=== PATIENT | male | born 1970 | race Caucasian/White ===

== ENCOUNTER 2017-02-01 08:13 | Inpatient (IN) | payer BC, OTHER ==
[2017-01-03 09:37] VITALS: BMI 35.0
[2017-01-03 10:42] LABS: URINE APPEARANCE CLEAR (CLEAR); URINE BILIRUBIN NEG (NEG); URINE COLOR YELLOW; URINE NITRITE NEG (NEG); URINE PH 6.5 (4.5-7.5); URINE SPECIFIC GRAVITY 1.027 (1.000-1.030); UROBILINOGEN NEG (NEG); ZZUR CULT IF INDIC CLEAN CATCH NO
[2017-01-03 10:44] LABS: MANUAL MICROSCOPIC REQUIRED? NO; REVIEW REQ? NO
[2017-01-03 10:49] LABS: BASO ABS # 0.05 K/uL (0-0.2); COMPLETE YES; EOS % 1.9 %; HEMATOCRIT 41.8 % (42-52); IG% 0.2 %; LYMPH % 24.6 %; LYMPH ABS # 1.29 K/uL (1.2-3.4); MEAN CELL VOLUME 88.6 fL (80-100); MEAN CORPUSCULAR HEMOGLOBIN 30.1 pg (25-34); MEAN PLATELET VOLUME 10.2 fL (7.4-10.4); MONO % 11.4 %; NEUT % 60.9 %; PLATELET COUNT 264 K/uL (130-400); PROTHROMBIN TIME (PATIENT) 10.5 SECONDS (9.0-12.0); RED BLOOD COUNT 4.72 M/uL (4.7-6.1); WHITE BLOOD COUNT 5.25 K/uL (4.8-10.8)
[2017-01-03 11:05] LABS: ESTIMATED AVERAGE GLUCOSE 103 mg/dl; HA1C FLAG Normal (Normal)
[2017-01-03 11:13] LABS: BUN/CREATININE RATIO 14.8 (10-20); CALCIUM 8.8 mg/dl (8.5-10.1); CREATININE 0.9 mg/dl (0.60-1.40); POTASSIUM 3.9 mmol/L (3.5-5.1)
--- NOTE | 2017-01-31 11:11 | HISTORY & PHYSICAL EXAMINATION ---
DATE OF ADMISSION: 02/01/2017 CHIEF COMPLAINT: Left hip pain. HISTORY OF PRESENT ILLNESS: The patient is a 46-year-old male with a known osteoarthritis about his left hip. He had a previous right total hip arthroplasty approximately a year and a half ago, which has done well. 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 Due to ongoing pain and disability and limitation with work activities, the patient now desires to proceed with left total hip arthroplasty. PAST MEDICAL HISTORY: Denies. PAST SURGICAL HISTORY: Right hip as above. MEDICATIONS: None. ALLERGIES: No known drug allergies. SOCIAL HISTORY AND REVIEW OF SYSTEMS: Noncontributory. PHYSICAL EXAMINATION: GENERAL: Well-nourished and well-developed male who appears his stated age. HEENT: Normocephalic and atraumatic. Extraocular movements intact. Oropharynx is pink and moist. NECK: Supple without adenopathy. LUNGS: Clear to auscultation bilaterally. HEART: Regular rate and rhythm. ABDOMEN: Soft, nontender, and nondistended. EXTREMITIES: The upper extremities are within normal limits. Left hip demonstrates limited range of motion. There is limitation of active and passive internal/external rotation with pain at end range. X-RAYS: X-rays were reviewed. He has moderate to severe osteoarthritis with near complete loss of the joint space. There is a large osteophyte off the inferior femoral head and acetabulum. ASSESSMENT: Left hip degenerative joint disease. PLAN: Risks versus benefits were discussed. Consent was obtained. We will proceed with left total hip arthroplasty upon preoperative workup and medical clearance. The patient's primary care physician is Vidya Ortiz from [facility] in [place].
[2017-02-01] VITALS (9 sets, daily range): BP systolic 98–138; BP diastolic 52–82; PULSE 53–85; TEMP 36.3–36.8; O2SAT 96–100; Ht 172.7 cm; Wt 105.8 kg
[~2017-02-01] VITALS: Ht 172.7 cm; Wt 105.8 kg
[~2017-02-01 08:13] MED LIST: ACETAMINOPHEN 500 MG TAB PO SCH; BUPIVACAINE 0.5 % 5 MG/1 ML PF 10ML VIAL ONE; CEFAZOLIN 2000 MG/60 ML D5W 60 ML IV SCH; CLB/200 PO; CeleBREX 200 MG CAP PO SCH; DEXAMETHASONE 4 MG TAB PO SCH; FAMOTIDINE 20 MG TAB PO SCH; GABAPENTIN 300 MG CAP PO SCH; HYDR-5688 PO; LACTATED RINGER'S 1000ML IV SCH; LACTATED RINGER'S 500 ML IV SCH; METOCLOPRAMIDE HCL 10 MG TAB PO SCH; OXYCODONE HCL 10 MG TABCR (OXYCONTIN) PO SCH; ROPIVACAINE 5MG/ML 30 ML 150 MG, BUPIVACAINE/EPINEPHR 0.5% MPF 30 ML, KETOROLAC TROMETH... INFIL SCH
--- NOTE | 2017-02-01 08:15 | History & Physical Bridge Note ---
H&P Re-Evaluation Bridge Note: I have examined the patient, reviewed the History & Physical and in the interval since the performance of the History & Physical I have noted the following changes of clinical significance: No changes noted
[2017-02-01] MEDS ORDERED: MIDAZOLAM HCL 1 MG/ML 2ML VIAL ONE ×2 (09:29)
[2017-02-01] MEDS ORDERED: NURSING VERBAL MED ORDER ONE (09:30)
[2017-02-01] MEDS ORDERED: FENTANYL CITRATE INJ 50 MCG/1 ML 2 ML VIAL ONE (09:30)
[2017-02-01] MEDS ORDERED: FENTANYL CITRATE INJ 50 MCG/1 ML 2 ML VIAL IV PRN (09:45)
[2017-02-01] MEDS ORDERED: EpHEDrine SULFATE INJ 50 MG/ML AMP IV PRN (09:45)
[2017-02-01] MEDS ORDERED: ONDANSETRON INJ 2 MG/ML 2 ML VIAL IV PRN ×2 (09:45→12:45)
[2017-02-01] MEDS ORDERED: ATROPINE SULFATE 0.1 MG/ML 5ML SYR IV PRN (09:45)
[2017-02-01] MEDS ORDERED: BACITRACIN 50000 UNIT VIAL ONE (10:43)
[2017-02-01] MEDS: TRANEXAMIC ACID INJ 1,000 MG in SODIUM CHLORIDE 0.9% 100ML 100 ML IV SCH ×2 (10:43→14:36)
[2017-02-01] MEDS ORDERED: ORTHO JOINT ANESTHETIC ONE (10:43)
[2017-02-01] MEDS ORDERED: POVIDONE-IODINE OP SOLN 30 ML BTL ONE (10:43)
--- NOTE | 2017-02-01 12:08 | [facility] Post Operative Brief Note ---
Immediate Operative Summary Operative Date Feb 01, 2017. Pre-Operative Diagnosis Left hip degenerative joint disease Post-Operative Diagnosis Left hip degenerative joint disease Procedure(s) Performed Left total hip arthroplasty Surgeon Dr. Jones Computer Systems Architect Surgeon(s) Cuate Clemente PA-C Estimated Blood Loss 100cc Findings severe OA Specimens A. Left femoral head Disposition Recovery Room / PACU
--- NOTE | 2017-02-01 12:21 | OPERATIVE REPORT ---
DATE OF OPERATION: 02/01/2017 PREOPERATIVE DIAGNOSIS: Osteoarthritis, left hip. POSTOPERATIVE DIAGNOSIS: Osteoarthritis, left hip. PROCEDURE: Left connective total hip arthroplasty. SURGEON: Dr. Jones. COMMERCIAL LEASING AGENT: Cuate Clemente PA-C. ANESTHESIA: Spinal. COMPLICATIONS: None. IMPLANTS USED: Acetabular liner 56, acetabular shell 56, femoral stem Accolade 4, and femoral head -5 x 36 mm ceramic. DESCRIPTION OF PROCEDURE: Following induction of adequate spinal anesthesia, the patient was placed in right lateral decubitus position and left Lizbeth-Langenbeck incision was made. Subcutaneous tissue was sharply dissected. Electrocautery used for hemostasis. The fascia was incised throughout the length of the wound and a brewer scissor placed beneath the short external rotators. The pyriformis was tagged with #1 Vicryl. The short external rotators were divided from the posterior aspect of the femur using electrocautery. These were swept posteriorly. A T-capsulotomy incision was made and the hip was dislocated using a combination of flexion, adduction, and internal rotation. Exposure of the femoral neck with old-style Hohmann and a blunt Hohmann was carried out and a femoral rasp was utilized as a guide for making the appropriate level femoral neck cut. This bone fragment was removed and reserved on the back table. Next, attention was turned to the acetabulum where bone hook was used to retract the femur while the offset retractors were placed anterior and posteriorly. A double-angled Hohmann was placed in superior and anterior position exposing the acetabulum nicely. Acetabular labrum as well as posterior capsule elements were removed using a long knife and a long pickup. Fovea centralis was cleared of all soft tissue. Sequential reamings were carried up to a 56 and decision was made to proceed with impaction of a 56 trabecular metal cup. This was impacted and held using a single 35 mm bone screw. The acetabular liner was placed with 15 of elevated posterior wall in the superior and posterior position. Next, attention was turned to the femoral portion of the case where a Bovie and pickup was used to further clear short external rotators from their insertion on the femur. Box osteotome was used to gain access to the femoral canal and the T-handled rasp and a rattail rasp were used to further open and lateral the canal. Sequentially raspings were carried up to a 4, which gave good fit and fill of the proximal femur. A trial reduction was carried out and ____ offset femoral neck component was chosen as the size to be used. A -5 x 36 mm femoral head was impacted into position, +0 head was utilized. The trial reduction was stable in all degrees of rotation with no [id number] impingement. The hip was dislocated. The trial components were removed and the final femoral stem, neck, and femoral head combination were assembled on the back table and impacted into position. Hip was relocated. Range of motion checked once again successful and the wound was irrigated. The pyriformis repaired to the greater trochanter using #1 Vicryl [id number] suture. A Hemovac drain was placed and the fascia was closed using #1 Vicryl, subcutaneous tissue was closed using 0 Dexon, and skin was closed with lito. Sterile dressing of Adaptic, 4 x 4's, ABDs, and foam tape was applied. The patient tolerated the procedure well. Due to the complex nature of the procedure, the entire surgery was performed with the operational assistance of Cuate Clemente PA-C. The student assistant, under direct supervision, was involved in the actual performance of all aspects of the surgical procedure including hemostasis, tissue retraction and incision, instrument management, patient positioning, and wound closure. DISPOSITION: Recovery room stable. I attest to the content of the Intraoperative Record and any orders documented therein. Any exception s are noted below.
[2017-02-01] MEDS ORDERED: ALUMINUM/MAGNESIUM/SIMETH (MAALOX MAX) 30 ML UDC PO PRN (12:45)
[2017-02-01] MEDS ORDERED: METOCLOPRAMIDE HCL INJ 5 MG/ML 2 ML VIAL IV PRN (12:45)
[2017-02-01] MEDS ORDERED: MoRPHine SULFATE 2 MG/ML CARP IV PRN (12:45)
[2017-02-01] MEDS ORDERED: ZOLPIDEM TARTRATE 5 MG TAB PO PRN (12:45)
[2017-02-01] MEDS ORDERED: MAGNESIUM HYDROXIDE SUSP 30 ML UDC PO PRN (12:45)
[2017-02-01] MEDS ORDERED: TAMSULOSIN HCL 0.4 MG CAP PO PRN (12:45)
[2017-02-01] MEDS ORDERED: MoRPHine SULFATE 4 MG/ML 1 ML CARP\\VIAL IV PRN (13:00)
[2017-02-01] MEDS ORDERED: MoRPHine SULFATE 10 MG/ML CARP/VIAL IV PRN (13:00)
--- NOTE | 2017-02-01 13:06 | DIAGNOSTIC IMAGING REPORT ---
LEFT PELVIS/UNILATERAL HIP 1 VIEW CLINICAL HISTORY: Postoperative evaluation. COMPARISON: Pelvis radiograph August 19, 2015. FINDINGS: Alignment of the total left hip arthroplasty is anatomic. There is no periprosthetic fracture or unexpected radiopaque foreign body. There is an acetabular screw. Surgical drain is in place. Alignment of the right hip arthroplasty remains anatomic. IMPRESSION: Expected findings following total left hip arthroplasty. Electronically signed by: Tom Davison M.D. 02/01/2017 1:05 PM Dictated Date/Time: 02/01/2017 1:04 PM
--- NOTE | 2017-02-01 13:27 | Anesthesiology Progress Note ---
Anesthesia Post Op Note Date & Time Feb 01, 2017 at 13:26 Vital Signs Pain Intensity: 0 Vital Signs Past 12 Hours Date Time Temp Pulse Resp B/P (MAP) Pulse Ox O2 Delivery O2 Flow Rate FiO2 02/01/17 13:20 36.0 59 16 114/77 99 Nasal Cannula 2 02/01/17 13:10 59 16 111/69 100 Nasal Cannula 2 02/01/17 13:00 58 18 129/66 99 Nasal Cannula 2 02/01/17 12:50 57 18 101/62 100 Nasal Cannula 2 02/01/17 12:40 58 18 105/61 100 Oxymask 10 02/01/17 12:32 36.4 59 18 101/64 97 Oxymask 10 02/01/17 09:12 36.6 53 20 130/77 99 Room Air Notes Mental Status: alert / awake / arousable, participated in evaluation Pt Amnestic to Procedure: Yes Nausea / Vomiting: adequately controlled Pain: adequately controlled Airway Patency, RR, SpO2: stable & adequate BP & HR: stable & adequate Hydration State: stable & adequate Neuraxial Anesthesia: was administered, sensory block is resolving Anesthetic Complications: no major complications apparent
[2017-02-01] MEDS: D5W AND 1/2NSS + 20MEQ KCL 1,000 ML IV SCH (14:36)
[2017-02-01] MEDS: OXYCODONE HCL IR 5 MG TAB (IMMEDIATE RELEASE) PO PRN ×2 (16:04→21:59)
[2017-02-01] MEDS: KETOROLAC TROMETHAMINE 30 MG/ML VIAL IV. SCH (18:23)
[2017-02-01] MEDS: FERROUS GLUCONATE 324 MG TAB PO SCH (18:23)
[2017-02-01] MEDS: ASPIRIN 81 MG ECTAB PO SCH (20:32)
[2017-02-01] MEDS: ACETAMINOPHEN 500 MG TAB PO SCH (20:32)
[2017-02-01] MEDS: CEFAZOLIN IV 2,000 MG in DEXTROSE 5% 50ML 50 ML IV SCH (20:32)
[2017-02-01] MEDS: PREGABALIN 75 MG CAP PO SCH (20:32)
[2017-02-01] MEDS: DOCUSATE SODIUM 100 MG CAP PO SCH (20:32)
[2017-02-02] MEDS: D5W AND 1/2NSS + 20MEQ KCL 1,000 ML IV SCH (00:12)
[2017-02-02] MEDS: KETOROLAC TROMETHAMINE 30 MG/ML VIAL IV. SCH ×3 (00:12→12:40)
[2017-02-02 03:20] VITALS: BP 109/64; PULSE 72; TEMP 36.8; O2SAT 90
[2017-02-02] MEDS: CEFAZOLIN IV 2,000 MG in DEXTROSE 5% 50ML 50 ML IV SCH (03:58)
[2017-02-02] MEDS: ACETAMINOPHEN 500 MG TAB PO SCH ×2 (03:59→12:39)
[2017-02-02 06:09] LABS: COMPLETE YES; EOS % 0.2 %; HEMATOCRIT 37.1 % (42-52); IG% 0.3 %; LYMPH % 9.2 %; LYMPH ABS # 1.12 K/uL (1.2-3.4); MEAN CELL VOLUME 88.3 fL (80-100); MEAN CORPUSCULAR HEMOGLOBIN 29.3 pg (25-34); MEAN CORPUSCULAR HGB CONC 33.2 g/dl (32-36); MEAN PLATELET VOLUME 10.1 fL (7.4-10.4); MONO % 7.8 %; NEUT % 82.5 %; PLATELET COUNT 231 K/uL (130-400); WHITE BLOOD COUNT 12.11 K/uL (4.8-10.8)
[2017-02-02 06:44] LABS: BUN/CREATININE RATIO 9.3 (10-20); CALCIUM 8.3 mg/dl (8.5-10.1); CREATININE 0.98 mg/dl (0.60-1.40); POTASSIUM 4.6 mmol/L (3.5-5.1)
[2017-02-02 07:13] VITALS: BP 109/66; PULSE 66; TEMP 36.8; O2SAT 99
[2017-02-02] MEDS ORDERED: DEXAMETHASONE INJ 10 MG in SYRINGE 0 ML IV SCH (07:30)
--- NOTE | 2017-02-02 07:38 | Orthopedic Progress Note ---
Orthopedic Progress Note Date of Service Feb 02, 2017. Subjective Post OP Day: 1 Reports: feeling well Objective N/V intact (Mild decrease active dorsiflexion left ankle), dressing C/D/I ( Hemovac d/c'd), toes mobile Date Time Temp Pulse Resp B/P (MAP) Pulse Ox O2 Delivery O2 Flow Rate FiO2 02/02/17 07:13 36.8 66 20 109/66 (80) 99 Room Air 02/02/17 03:20 36.8 72 16 109/64 (79) 90 Room Air 02/02/17 00:13 Room Air 02/01/17 23:23 36.8 81 16 98/52 (67) 97 Room Air 02/01/17 20:30 36.6 75 18 123/77 (92) 96 Room Air 02/01/17 18:30 36.7 85 18 116/75 (89) 97 Room Air 02/01/17 16:35 36.4 70 18 117/69 (85) 98 Room Air 02/01/17 16:00 Room Air 02/01/17 15:35 36.4 82 18 119/71 (87) 96 Room Air 02/01/17 14:28 36.3 59 16 138/82 (100) 96 Nasal Cannula 2.0 02/01/17 14:02 57 19 121/71 (88) 99 Nasal Cannula 2.0 02/01/17 13:35 100 Nasal Cannula 2.0 02/01/17 13:35 Nasal Cannula 2.0 02/01/17 13:35 36.4 62 18 100/66 (77) 100 Nasal Cannula 2.0 02/01/17 13:20 36.0 59 16 114/77 99 Nasal Cannula 2 02/01/17 13:10 59 16 111/69 100 Nasal Cannula 2 02/01/17 13:00 58 18 129/66 99 Nasal Cannula 2 02/01/17 12:50 57 18 101/62 100 Nasal Cannula 2 02/01/17 12:40 58 18 105/61 100 Oxymask 10 02/01/17 12:32 36.4 59 18 101/64 97 Oxymask 10 02/01/17 09:12 36.6 53 20 130/77 99 Room Air Laboratory Results 24 Hours: Test 02/02/17 05:56 White Blood Count 12.11 K/uL Red Blood Count 4.20 M/uL Hemoglobin 12.3 g/dL Hematocrit 37.1 % Mean Corpuscular Volume 88.3 fL Mean Corpuscular Hemoglobin 29.3 pg Mean Corpuscular Hemoglobin Concent 33.2 g/dl Platelet Count 231 K/uL Mean Platelet Volume 10.1 fL Neutrophils (%) (Auto) 82.5 % Lymphocytes (%) (Auto) 9.2 % Monocytes (%) (Auto) 7.8 % Eosinophils (%) (Auto) 0.2 % Basophils (%) (Auto) 0.0 % Neutrophils # (Auto) 9.98 K/uL Lymphocytes # (Auto) 1.12 K/uL Monocytes # (Auto) 0.94 K/uL Eosinophils # (Auto) 0.03 K/uL Basophils # (Auto) 0.00 K/uL Assessment & Plan Assessment: 46 yo male stable POD #1 s/p left NAZANIN Plan: 1. Med management 2. DVT prophylaxis- ASA, SCDs 3. PT/OT 4. D/C planning- home without services
[2017-02-02] MEDS ORDERED: ACET-24 PO (07:42)
[2017-02-02] MEDS ORDERED: CLB200 PO (07:42)
[2017-02-02] MEDS ORDERED: RXC5 PO (07:42)
[2017-02-02] MEDS ORDERED: ONDA8TAB12 PO (07:42)
[2017-02-02] MEDS ORDERED: ASPEC81 PO (07:42)
--- NOTE | 2017-02-02 07:43 | Discharge Instructions ---
Discharge Instructions Date of Service Feb 02, 2017. Admission Reason for Admission: Left Hip Osteoarthritis Discharge Discharge Diagnosis / Problem: Left hip arthritis Discharge Goals Goal(s): Decrease discomfort, Improve function Activity Recommendations Activity Limitations: as noted below Weightbearing Status: Left weightbearing (as tolerated) . Instructions / Follow-Up Instructions / Follow-Up ACTIVITY RECOMMENDATIONS: SELF CARE INSTRUCTIONS AFTER TOTAL HIP REPLACEMENT Until the incision and soft tissues around your hip have healed, there is a possibility that the hip prosthesis could dislocate. A. Observe the following precautions to prevent dislocation: 1. Don't bend your hip greater than 90 degrees. 2. Avoid crossing your legs or ankles while standing or lying. 3. Sit with your feet placed 6 inches apart. 4. When sitting, keep your knees below your hips. Sit on a firm surface, avoid deep, soft chairs and couches. Use an elevated toilet seat in the bathroom. 5. Don't bend over at the waist. Use a long handled shoehorn and a sock aid to help you put on your shoes and socks. A belt press operator can help you pick pulling machine tender objects that are too high or too low to reach. 6. Keep car riding to a minimum for at least one month after surgery. B. Your balance may be shaky for a while. Use crutches or a walker until directed by your doctor. C. Use hand rails when walking on stairs. D. Wear low heeled shoes with non-slip soles. E. Be sure that your floors are free of things that could trip you - throw rugs , electrical cords, small objects. Avoid wet and waxed floors, especially with crutches and canes. F. Try to walk several times a day with rest periods between. G. Continue with all the exercises taught to you in the hospital. Again, make walking a part of your daily routine. SPECIAL CARE INSTRUCTIONS: VERY IMPORTANT TO READ AND REVIEW A. You may still be at risk for phlebitis and blood clots. 1. Wear surgical stockings (SONIA hose) for 2 weeks after surgery to improve circulation and reduce swelling. 2. Take Aspirin 81mg twice daily for 4 weeks or as directed by your doctor. This is your blood thinner. 3. High risk patients may be prescribed a stronger blood thinner if necessary. 4. If you are on Coumadin normally, your family doctor/news editor should monitor your blood work. Expect a phone call the day of or the day after bloodwork is drawn to adjust your dosage. B. You must take antibiotics before having dental work, bladder, bowel and other surgery. Your doctor will provide you with a permanent card to carry describing precautions. C. Call [facility] if you have a fever, redness or swelling around the incision, cloudy drainage from incision, or sudden increase in pain in your hip, not relieved by your regular pain medication. D. Please call the office at if you have any concerns or questions about your operation or recovery. * YOU MAY SHOWER, NO TUB BATHS UNTIL CLEARED BY YOUR DOCTOR. * WEAR SONIA HOSE 20 HOURS PER DAY FOR 2 WEEKS. * YOU SHOULD USE A WALKER OR CRUTCHES FOR 2-4 WEEKS. THIS WILL HELP PREVENT STRAIN ON YOUR HIP MUSCLE AND ALLOW IT TO HEAL PROPERLY. YOU MAY WEAN TO A CANE TOLERATED. * MOST PATIENTS WILL HAVE HOME NURSING FOR THERAPY. IF YOU DECIDE TO DO OUTPATIENT PHYSICAL THERAPY, PLEASE SCHEDULE THIS 3 TIMES PER WEEK. Silverlon- This is a large adhesive bandage that contains silver ions. This helps your incision heal by fighting off bacteria and protecting it from the outside environment. You are permitted to shower with this dressing. This will remain on your incision for 7 days and then should be removed. Some visible blood or drainage through the dressing window is normal. If there is significant drainage or leaking noted before the 7 days notify your doctor's office immediately. Once removed, keep incision clean and dry. If there is any drainage or redness noted, please call your surgeon. FOLLOW UP VISIT: If appointment is not already scheduled: Please call [facility] to make a follow-up appointment for 2 weeks after your surgery at . Current Hospital Diet Patient's current hospital diet: Regular Diet Discharge Diet Recommended Diet: Regular Diet Procedures Procedures Performed: Left total hip arthroplasty Pending Studies Studies pending at discharge: no Laboratory Results Hemoglobin A1c Test 01/03/17 10:10 Range/Units Estimated Average Glucose 103 mg/dl Hemoglobin A1c 5.2 4.5-5.6 % Medical Emergencies . Who to Call and When: Medical Emergencies: If at any time you feel your situation is an emergency, please call 911 immediately. . Non-Emergent Contact Non-Emergency issues call your: Surgeon Call Non-Emergent contact if: temperature is above 101.5, your pain is not controlled, wound has increased drainage, wound has increased redness . "Provider Documentation" section prepared by Cuate Clemente PA-C. . VTE Core Measure Inpt VTE Proph given/why not?: Other Anticoagulation (ASA), T.E.D. Stockings, SCD's [place] Drug Monitoring Program Search Results: patient reviewed within database, no issues identified
[2017-02-02] MEDS: FERROUS GLUCONATE 324 MG TAB PO SCH ×2 (08:34→13:39)
[2017-02-02] MEDS: ASPIRIN 81 MG ECTAB PO SCH (08:34)
[2017-02-02] MEDS: DOCUSATE SODIUM 100 MG CAP PO SCH (08:35)
[2017-02-02] MEDS: PREGABALIN 75 MG CAP PO SCH (08:42)
--- NOTE | 2017-02-02 08:43 | Anesthesiology Progress Note ---
Anesthesia Post Op Note Date & Time Feb 02, 2017 at 08:43 Vital Signs Pain Intensity: 0.0 Vital Signs Past 12 Hours Date Time Temp Pulse Resp B/P (MAP) Pulse Ox O2 Delivery O2 Flow Rate FiO2 02/02/17 07:13 36.8 66 20 109/66 (80) 99 Room Air 02/02/17 03:20 36.8 72 16 109/64 (79) 90 Room Air 02/02/17 00:13 Room Air 02/01/17 23:23 36.8 81 16 98/52 (67) 97 Room Air Notes Mental Status: alert / awake / arousable, participated in evaluation Pt Amnestic to Procedure: Yes Nausea / Vomiting: adequately controlled Pain: adequately controlled Airway Patency, RR, SpO2: stable & adequate BP & HR: stable & adequate Hydration State: stable & adequate Neuraxial Anesthesia: sensory block resolved Anesthetic Complications: no major complications apparent
[2017-02-02] MEDS ORDERED: PANTOprazole SOD 40 MG TAB PO SCH (09:00)
[2017-02-02] MEDS ORDERED: MULTIVITAMIN TAB PO SCH (09:00)
[2017-02-02 13:44] VITALS: BP 109/66; PULSE 66; TEMP 36.8; O2SAT 99
[2017-02-02] MEDS ORDERED: CeleBREX 200 MG CAP PO SCH (21:00)
--- NOTE | 2017-02-07 20:45 | DISCHARGE SUMMARY ---
CHIEF COMPLAINT: Left hip pain. Please see complete history and physical examination. HOSPITAL COURSE: The patient underwent left total hip arthroplasty without complication. He tolerated the procedure well and was discharged to recovery room in stable condition. His postoperative course was relatively uneventful. His postoperative pain was reasonably well controlled with a combination of spinal anesthesia, intraoperative joint injection, IV, and oral pain medications. He was started on aspirin for DVT prophylaxis. He also utilized SONIA stockings and SCDs for additional prophylaxis. His H&H was stable and did not require transfusion. His surgical drain was discontinued on postoperative day #1, and surgical dressing will remain in place for approximately 7 days postoperative. He tolerated postoperative physical therapy reasonably well as he was ambulating and transferring appropriately. He was observing all total hip precautions. He was discharged home on postoperative day #1. He will continue physical therapy at home on his own without assistance. He will continue his aspirin for DVT prophylaxis and follow up in our office in approximately 10-14 days for his initial postop evaluation.
== END 2017-02-02 15:00 | disposition home or self-care (01) | DRG 470 ==
LOC: C.ACU 08:13 → C.3E 08:50 → ENRESERV 13:15
PROC: 0SRB03Z Replacement of Left Hip Joint with Ceramic Synthetic Substitute, Open Approach (ICD-10-PCS; principal; 2017-02-01 11:00)
DX: M16.12 Unilateral primary osteoarthritis, left hip (principal)